=== PATIENT | male | born 1955 | race Caucasian/White ===

== ENCOUNTER → 2022-04-11 13:46 | Outpatient (CLI) | payer OTHER, SELFPAY ==
--- NOTE | 2022-04-11 | DI.ECHO.S_ITS ---
[facility] +---------+ [facility] +---------+ : : [address] : : : : [id number] : : : : Phone: [phone]---------+ Echocardiogram Report + + :Name: LADONNA VALENCIA Study Date: 04/11/2022 Height: 69 in : :[facility] ReadingLocation: Weight: 210 lb : : Gender: Male BSA: 2.1 m2 : :: 1955 Age: 67 yrs BP: 147/89 mmHg: :Reason For Study: Aortic valve stenosis : :Ordering Physician: BROCK, : :BALWINDER Performed By: Jasson Monzon : :Referring: BALWINDER HAUSER : + + Interpretation Summary 1) Normal left ventricular size with moderately reduced systolic function (EF 35-40%). 2) The right ventricle is normal in size and function. 3) There is severe aortic stenosis (valve area 0.7cm2, mean gradient 52mmHg, severity ratio 0.16). 4) No prior Echo available for comparison. Procedure: A two-dimensional transthoracic echocardiogram with color flow and Doppler was performed. The study quality was technically adequate. There is no prior echocardiogram noted for this patient. The patient was in normal sinus rhythm during the exam. Left Ventricle: The left ventricle is normal in size. Left ventricular wall thickness is at the upper limits of normal. Left ventricular systolic function is moderately reduced. The ejection fraction is estimated to be 35-40%. There is moderate global hypokinesis of the left ventricle. Diastolic function could not be accurately assessed due to unobtainable data. Right Ventricle: The right ventricle is normal in size and function. Atria: Both atria are normal in size. The interatrial septum grossly appears intact with no obvious evidence for an atrial septal defect. Mitral Valve: There is mild mitral annular calcification. There is trace mitral regurgitation. Aortic Valve: The aortic valve is heavily calcified. The aortic valve is not well visualized. There is severe aortic stenosis. The peak aortic velocity is 4.59 m/sec. The aortic valve mean gradient is 52 mmHg. No aortic regurgitation is present. Tricuspid Valve: The tricuspid valve is normal in structure and function. No tricuspid regurgitation. Pulmonary artery pressures cannot be estimated because of the lack of a measurable TR jet velocity. Pulmonic Valve: The pulmonic valve is normal in structure and function. There is no pulmonic valvular regurgitation. Great Vessels: The aortic root is normal size. The IVC is of normal diameter and collapses greater than 50% with a sniff. This suggests a low right atrial pressure of 3 mm Hg. Pericardium/ Pleura There is no pericardial effusion. There is no pleural effusion. MMode/2D Measurements & Calculations LVIDd: 5.7 cm LVOT diam: 2.5 cm LVIDs: 4.8 cm Ao root diam: 3.3 cm FS: 15.8 % IVSd: 1.1 cm LVPWd: 1.2 cm LV hobson. diameter/BSA (cm/m^2): 2.7 LV sys. diameter/BSA (cm/m^2): 2.3 LA dimension: 3.9 cm RA long axis: 4.2 cm LA A2 area: 16.6 cm2 LA A4 area: 16.1 cm2 LA length (vol): 4.8 cm LA vol: 46.9 ml LA vol index: 22.2 ml/m2 LVLs ap4: 8.7 cm LVLd ap2: 9.3 cm LVLs ap2: 9.2 cm TAPSE_phl: 1.9 cm Doppler Measurements & Calculations Ao V2 max: 459.0 cm/sec LVOT Max Devin: 67.2 cm/sec Ao V2 mean: 341.0 cm/sec LV V1 max P.8 mmHg Ao max P.0 mmHg LV V1 VTI: 17.7 cm Ao mean P.0 mmHg KAYLEEN(I,D): 0.77 cm2 Ao V2 VTI: 110.0 cm KAYLEEN(V,D): 0.70 cm2 sev ratio: 0.16 KAYLEEN indexed to BSA (cm^2/m^2): 0.37 MV E max devin: 87.4 cm/sec SV(LVOT): 84.9 ml MV A max devin: 94.7 cm/sec MV E/A: 0.92 Med Peak E' Devin: 4.8 cm/sec E/E' med: 18.1 Lat Peak E' Devin: 6.0 cm/sec E/E' lat: 14.6 E/e' average: 16.3 MV dec time: 0.19 sec AV VR_phl: 0.15 MV P1/2t-pr_phl: 54.0 msec KAYLEEN(VTI)/BSA_phl: 0.26 Reading Physician:05:07 PM
--- NOTE | 2022-04-11 | DI.US.S_ITS ---
PROCEDURE: US CAROTID DOPPLER BI INDICATIONS: BRUIT TECHNIQUE: Color and pulse Doppler interrogation was performed of both carotid systems, with image documentation and velocity measurements. COMPARISON: None. FINDINGS: Stenosis calculations are based on SRU (Society of Radiologists in Ultras[employer]) criteria. The flow velocities and the arterial waveforms are normal within both carotid arterial systems. Minimal atherosclerotic plaque can be seen on the right side. The estimated degree of internal carotid artery stenosis is less than 50%. Antegrade flow is confirmed within both vertebral arteries. IMPRESSION: No hemodynamically significant stenosis is seen. Dictated by: Zachariah Silverman M.D. on 04/11/2022 at 14:42 Approved by: Zachariah Silverman M.D. on 04/11/2022 at 14:42
== END ==
PROVIDERS: PCP Nurse Practitioner Family; Referring Provider Internal Medicine Cardiovascular Disease; Visit Provider Internal Medicine Cardiovascular Disease
DX: I35.0 Nonrheumatic aortic (valve) stenosis (principal); R09.89 Other specified symptoms and signs involving the circulatory and respiratory systems
CPT/HCPCS: 93306; 93880; C8929; Q9957